=== PATIENT | female | born 1985 | race Caucasian/White ===

== ENCOUNTER 2016-12-17 09:27 | Emergency (ER) | payer SELFPAY ==
[~2016-12-17] VITALS: Wt 68.2 kg
[~2016-12-17 09:27] MED LIST: ASPI1TAB2; TRAM-40
[2016-12-17] MEDS ORDERED: HYDROCODONE/APAP (5/325) TAB PO ONE (10:00)
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
[2016-12-17] MEDS ORDERED: ONDANSETRON (ODT) 4 MG TAB ODT STA (11:16)
[2016-12-17] MEDS ORDERED: SOD CHLORIDE 0.9% 1,000 ML IV ONE (11:30)
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
[2016-12-17] MEDS ORDERED: TRAM50TA2 PO (12:56)
[2016-12-17] MEDS ORDERED: NAPR-260 PO (12:56)
[2016-12-17] MEDS ORDERED: CYCL-319 PO (12:57)
[2016-12-17] MEDS ORDERED: NEOM1PAC TP (12:58)
[2016-12-17 13:14] VITALS: BP 102/70; PULSE 64; RESP 18
== END 2016-12-17 13:15 | disposition home or self-care (01) ==
LOC: FTE 09:27
DX: S29.9XXA Unspecified injury of thorax, initial encounter (principal); S69.92XA Unspecified injury of left wrist, hand and finger(s), initial encounter; S69.91XA Unspecified injury of right wrist, hand and finger(s), initial encounter; R55 Syncope and collapse; V47.5XXA Car driver injured in collision with fixed or stationary object in traffic accident, initial encounter; Z79.82 Long term (current) use of aspirin
CPT/HCPCS: 29125; 71010; 73110; 82962; 93005; 99284; J7030